=== PATIENT | female | born 1950 | race Two or more races ===

== ENCOUNTER 2020-09-01 10:53 | Outpatient (AMBR) | payer MEDICARE, MEDICAID, SELFPAY ==
--- NOTE | 2020-08-17 13:09 | PTNOTE_ITS ---
PT OP Initial Eval Patient Information Visit Reasons: back pain Medical Diagnosis: Back Pain; Sciatica Treatment Dx #1: Back Pain Treatment Dx #2: BLE Weakness Start of Care: 08/17/20 Date of Onset: 6 months ago Initial Assessment Subjective Pt is a 70 y/o female c/o chronic back pain (8/10) with LE weakness worsening 6 months ago. Pt stated that she has herniated disc and has seen a surgeon where she was deemed a surgical candidate but decline due to age. Pt is also pending another MRI. Pt has limitation with walking, chores, cooking, cleaning, lifting, standing, self care, walking, and recreational activities. Objective L/S AROM: all motions are 50 % towards end range with pain in all plane Hip PROM: all motions are WFL LE MMTs Hip Flexors: 3-/5 Glute Med: 3/5 Glute Max: 3/5 Adductors: 3+/5 Assessment Pt demonstrate back pain with BLE weakness leading to decline function and difficulty with ADLs. Pt will attempt physical therapy if pain persist Pt will be refer back to PCP Short Term and [employer] Goals 1) Decrease back pain to 2/10 in 6 wks to be able to sit and stand more than 1 hr 2) Increase L/S AROM WFL in 6 wks to be able to perform chores 3) Increase core strength WFL in 6 wks to be able to perform recreational activities 4) Increase BLE MMTs grossly to 4-/5 in 6 wks to be able to walk more than 1 hr 5) Indep with HEP Treatment Plan 1) Manual Therapy 2) Therapeutic Activities 3) Therapeutic Exercises 4) Modalities (ice, heat, traction) Frequency and Duration 2 x wk for 6 wks Certification Dates: 08/17/20 to 11/17/20 Office Procedures PT Procedures PT Date of Service: 08/17/20 OP PT Eval Mod Complex 30 minutes: Yes
--- NOTE | 2020-08-20 12:02 | PT.ODAYNRPT ---
PT Outpatient Daily Note Date of Service: 08/20/20 OP Daily Note Visit Reasons: back pain Outpatient Physical Therapy Treatment Date: 08/20/20 Subjective: Pt's back was hurting yesterday down to her left leg. Objective: Please see flow chart for list of ther ex performed Assessment: tolerate exercises with minimal pain Plan: Continue with PT Length of Time (minutes) of Treatment: 30 Minutes Office Procedures PT Procedures PT Date of Service: 08/20/20 Therapeutic Exercise 30 minutes: Yes PT Procedures PT Date of Service: 08/17/20 OP PT Eval Mod Complex 30 minutes: Yes
--- NOTE | 2020-08-25 13:40 | PT.ODAYNRPT ---
PT Outpatient Daily Note Date of Service: 08/25/20 OP Daily Note Visit Reasons: back pain Outpatient Physical Therapy Treatment Date: 08/25/20 Subjective: Pt's back is much better. Pt mention that she can walk longer with less pain Objective: Please see flow chart for list of ther ex performed Assessment: tolerate exercises with minimal pain Plan: Continue with PT Length of Time (minutes) of Treatment: 30 Minutes Office Procedures PT Procedures PT Date of Service: 08/20/20 Therapeutic Exercise 30 minutes: Yes PT Procedures PT Date of Service: 08/25/20 Therapeutic Exercise 30 minutes: Yes PT Procedures PT Date of Service: 08/17/20 OP PT Eval Mod Complex 30 minutes: Yes
--- NOTE | 2020-08-27 10:44 | PT.ODAYNRPT ---
PT Outpatient Daily Note Date of Service: 08/27/20 OP Daily Note Visit Reasons: back pain Outpatient Physical Therapy Treatment Date: 08/27/20 Subjective: Pt mention that her back is a little pain. Objective: Please see flow chart for list of ther ex performed Assessment: tolerate exercises with minimal pain Plan: Continue with PT Length of Time (minutes) of Treatment: 30 Minutes Office Procedures PT Procedures PT Date of Service: 08/20/20 Therapeutic Exercise 30 minutes: Yes PT Procedures PT Date of Service: 08/25/20 Therapeutic Exercise 30 minutes: Yes PT Procedures PT Date of Service: 08/17/20 OP PT Eval Mod Complex 30 minutes: Yes PT Procedures PT Date of Service: 08/27/20 Therapeutic Exercise 30 minutes: Yes
--- NOTE | 2020-09-01 10:53 | PT.ODAYNRPT ---
PT Outpatient Daily Note Date of Service: 09/01/20 OP Daily Note Visit Reasons: back pain Outpatient Physical Therapy Treatment Date: 09/01/20 Subjective: Pt's back pain doesn't hurt when she doesn't move. Pt still has limitation with chores due to pain. Pt can now sweep and make her bed with less pain. Objective: Please see flow chart for list of ther ex performed Assessment: tolerate exercises with minimal pain Plan: Continue with PT Length of Time (minutes) of Treatment: 30 Minutes Office Procedures PT Procedures PT Date of Service: 08/20/20 Therapeutic Exercise 30 minutes: Yes PT Procedures PT Date of Service: 08/25/20 Therapeutic Exercise 30 minutes: Yes PT Procedures PT Date of Service: 09/01/20 Therapeutic Exercise 30 minutes: Yes PT Procedures PT Date of Service: 08/17/20 OP PT Eval Mod Complex 30 minutes: Yes PT Procedures PT Date of Service: 08/27/20 Therapeutic Exercise 30 minutes: Yes
== END 2020-09-08 23:59 | disposition home or self-care (01) ==
PROVIDERS: PCP Physician Assistant; Referring Provider Physician Assistant; Visit Provider Physician Assistant
DX: M54.41 Lumbago with sciatica, right side (principal); G89.29 Other chronic pain; R53.1 Weakness; R26.2 Difficulty in walking, not elsewhere classified
CPT/HCPCS: 97110; 97162

== ENCOUNTER 2020-09-21 13:33 | Outpatient (AMBR) | payer MEDICARE, MEDICAID, SELFPAY ==
--- NOTE | 2020-09-13 15:11 | PT.ODAYNRPT ---
PT Outpatient Daily Note Date of Service: 09/13/20 OP Daily Note Visit Reasons: back pain Outpatient Physical Therapy Treatment Date: 09/13/20 Subjective: Pt mention that her back is a little better. Pt has been able to sit to stand and actually stand longer with less pain. Objective: Please see flow chart for list of ther ex performed Assessment: tolerate exercises with minimal pain; cues to correct hip flexion exercise to engage more hip flexion Plan: Continue with PT Length of Time (minutes) of Treatment: 30 Minutes Office Procedures PT Procedures PT Date of Service: 09/13/20 Therapeutic Exercise 30 minutes: Yes
--- NOTE | 2020-09-17 13:37 | PTNOTE_ITS ---
PT Outpatient Daily Note Date of Service: 09/17/20 OP Daily Note Visit Reasons: back pain Outpatient Physical Therapy Treatment Date: 09/17/20 Subjective: Pt mention that her back feels okay. Pt still has pain but less i ntense Objective: Please see flow chart for list of ther ex performed Assessment: tolerate exercises with minimal pain Plan: Continue with PT Length of Time (minutes) of Treatment: 30 Minutes Office Procedures PT Procedures PT Date of Service: 09/13/20 Therapeutic Exercise 30 minutes: Yes PT Procedures PT Date of Service: 09/17/20 Therapeutic Exercise 30 minutes: Yes
== END 2020-10-08 23:59 | disposition home or self-care (01) ==
PROVIDERS: PCP Physician Assistant; Referring Provider Physician Assistant; Visit Provider Physician Assistant
DX: M54.41 Lumbago with sciatica, right side (principal); G89.29 Other chronic pain; R53.1 Weakness; R26.2 Difficulty in walking, not elsewhere classified
CPT/HCPCS: 97110

== ENCOUNTER → 2024-06-10 | Outpatient (CLI) | payer MEDICARE, MEDICAID, SELFPAY ==
--- NOTE | 2024-06-10 15:45 | XR_ITS ---
Examination: Venous duplex lower extremity sonogram, bilateral. Date and time of exam: June 10, 2024 1520 hrs. Indications: Leg numbness and paresthesias 6 months, history varicose veins Technique: Multiple sonographic images of the deep venous system have been obtained. B-mode/2-D grayscale imaging of vascular structures and Doppler spectral analysis (waveforms) and color performed Both legs are examined. Findings: Deep venous systems do not demonstrate abnormal echogenicity. All visualized deep veins exhibit compressibility. All visualized deep veins exhibit augmentation. Impression: Negative for deep vein thrombosis
== END | disposition home or self-care (01) ==
LOC: CDIM 14:53
PROVIDERS: PCP Physician Assistant; Referring Provider Specialist; Visit Provider Specialist
DX: I83.93 Asymptomatic varicose veins of bilateral lower extremities (principal)
CPT/HCPCS: 93970

== ENCOUNTER → 2024-06-13 | Outpatient (CLI) | payer MEDICARE, MEDICAID, SELFPAY ==
--- NOTE | 2024-06-13 13:00 | XR_ITS ---
Examination: Retroperitoneal ultrasound, complete Technique: Multiple high resolution grayscale images of the retroperitoneum obtained, including kidneys and bladder. Exam date and time:June 13, 2024 1348 hours INDICATIONS: Flank pain pelvic pain and couple months, urinary tract infections several days FINDINGS: Right kidney 9.6 x 5.2 x 5.1 cm cortex 1.1 cm Left kidney 9.4 x 4.7 x 4.5 cm cortex 1.7 cm Moderate bilateral renal parenchymal scar formation No hydronephrosis No bladder mass or bladder calculi Bladder prevoid volume 2 93 cc postvoid volume 126 cc IMPRESSION: Moderate bilateral renal parenchymal scar formation
== END | disposition home or self-care (01) ==
PROVIDERS: PCP Physician Assistant; Referring Provider Urology; Visit Provider Urology
DX: N28.89 Other specified disorders of kidney and ureter (principal)
CPT/HCPCS: 76770

== ENCOUNTER 2024-11-05 08:54 | Emergency (ER) | payer MEDICARE, MEDICAID, SELFPAY ==
[2024-11-05 09:25] VITALS: BP 152/81; PULSE 69; RESP 18; TEMP 36.6; O2SAT 96; BMI 31.5
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
== END 2024-11-05 11:58 | disposition home or self-care (01) ==
PROVIDERS: Emergency Provider Emergency Medicine; PCP Physician Assistant
DX: S13.4XXA Sprain of ligaments of cervical spine, initial encounter (principal); S09.90XA Unspecified injury of head, initial encounter; S29.9XXA Unspecified injury of thorax, initial encounter; V89.2XXA Person injured in unspecified motor-vehicle accident, traffic, initial encounter
CPT/HCPCS: 70450; 71046; 72125; 99284

== ENCOUNTER → 2025-01-21 | Outpatient (CLI) | payer MEDICARE, MEDICAID, SELFPAY ==
--- NOTE | 2025-01-21 10:30 | XR_ITS ---
Examination: Abdomen sonogram, complete Date and time of exam: January 21, 2025 1108 hours INDICATIONS: Right upper abdominal pain beginning 2 years ago. Technique: Multiple real-time grayscale transabdominal sonographic images of the abdomen have been obtained. Findings: Absent gallbladder Common bile duct 7 mm no stones Pancreatic head 2.2 cm Aorta not enlarged. Liver 12.1 cm fatty infiltration no focal liver lesions. Normal hepatopedal portal venous flow Patent IVC Right kidney 10.4 cm cortex 1.4 cm Left kidney 9.2 cm cortex 1.7 cm 4 mm x 5 mm mid left renal calculus Moderate bilateral renal parenchymal scar formation Spleen 8.5 cm with 32 mm cyst IMPRESSION: Negative for common bile duct stones Fatty infiltration throughout the liver Bilateral renal cortical thinning 5 mm midpole nonobstructing left renal calculus
== END | disposition home or self-care (01) ==
LOC: CDIM 10:43
PROVIDERS: PCP Family Medicine; Referring Provider Physician Assistant; Visit Provider Physician Assistant
DX: K76.0 Fatty (change of) liver, not elsewhere classified (principal); N20.0 Calculus of kidney; N28.89 Other specified disorders of kidney and ureter
CPT/HCPCS: 76700

== ENCOUNTER → 2025-05-25 | Outpatient (CLI) | payer MEDICARE, MEDICAID, SELFPAY ==
--- NOTE | 2025-05-25 12:37 | EKG_ITS ---
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
[2025-05-25 13:29] LABS: Basophils # (Auto) 0.1 Thou/mm3 (0.0-0.2); Basophils % (Auto) 1 % (0-2.5); Eosinophils # (Auto) 0.1 Thou/mm3 (0.0-0.5); Eosinophils % (Auto) 2 % (0-10); Hematocrit 43.6 % (36.0-46.0); Hemoglobin 14.1 g/dL (12.0-16.0); Immature Granulocytes Auto 0.01 Thou/mm3 (0.00-0.00); Lymphocytes # (Auto) 2.3 Thou/mm3 (1.0-4.8); Lymphocytes % (Auto) 36 % (10-50); Mean Corpuscular HGB Conc 32.3 g/dl (31.0-37.0); Mean Corpuscular Hemoglobin 27.2 pg (25.0-35.0); Mean Corpuscular Volume 84 fL (80-100); Monocytes # (Auto) 0.7 Thou/mm3 (0.0-0.8); Monocytes % (Auto) 11 % (0-12); Neutrophils # (Auto) 3.3 Thou/mm3 (1.8-7.7); Neutrophils % (Auto) 51 % (37-80); Nucleated Red Blood Cell # 0.00 Thou/mm3 (0.00-0.00); Nucleated Red Blood Cell % 0 /100 WBC (0); Platelet Count 253 Thou/mm3 (140-440); RDW Standard Deviation 41.9 fL (36.4-46.3); Red Blood Count 5.18 Miln/mm3 (4.00-5.20); White Blood Count 6.6 Thou/mm3 (3.6-11.0)
[2025-05-25 13:38] LABS: INR 1.0 (0.9-1.3); Partial Thromboplastin Time 26.7 Seconds (22.0-36.0); Prothrombin Time 10.4 Seconds (9.0-12.2)
== END | disposition home or self-care (01) ==
LOC: SLAB 12:09
PROVIDERS: PCP Physician Assistant; Referring Provider Internal Medicine Cardiovascular Disease; Visit Provider Internal Medicine Cardiovascular Disease
DX: Z01.818 Encounter for other preprocedural examination (principal); Z79.01 Long term (current) use of anticoagulants
CPT/HCPCS: 36415; 85025; 85610; 85730; 93005